=== PATIENT | female | born 1950 | race Caucasian/White ===

== ENCOUNTER 2017-03-16 15:20 | Inpatient (IN) | payer MEDICARE, OTHER ==
[2017-03-16] MEDS ORDERED: 0.9 % SODIUM CHLORIDE 1,000 ML IV ONE (15:32)
[2017-03-16] MEDS ORDERED: IPRATROPIUM/ALBUTEROL SULFATE 3 ML AMPUL.NEB NEB STA (15:32)
--- NOTE | 2017-03-16 15:35 | ED Physician Documentation ---
Upper Respiratory Symptoms - HISTORIAN Historian: patient - HPI Chief Complaint: Cough/ Upper Respiratory Further Comments: yes (67 year old female patient presents with complaints of productive, weakness, poor po intake, and fatigue.) - ROS CONST/EYES: weakness. denies: eye redness, eye itching CVS/RESP: none, shortness of breath. denies: chest pain, palpitations LYMPH: denies: leg swelling, rash, swollen glands, ankle swelling GI/: nausea. denies: abdominal pain, problems urinating, vomiting, diarrhea NEURO/PSYCH: denies: fainting, dizziness, confusion, anxiety, depression, other MS/SKIN: denies: joint pain, muscle aches, rash, other - PAST HX Lung Disease: COPD, other (RA, right ear infection, GERD, hypothyroidism) Surgeries/Procedures: appendectomy, hysterectomy, other (left lobectomy) Allergies/Adverse Reactions: Allergies Allergy/AdvReac Type Severity Reaction Status Date / Time Sulfa (Sulfonamide Allergy Unknown Verified 03/16/17 15:55 Antibiotics) Home Medications: Ambulatory Orders Medication Instructions Recorded Albuterol Sulfate [Proair Hfa] 2 inhalation IH Q 4-6 HRS PRN #1 04/07/13 each Beclomethasone Dipropionate [Qvar] 8.7 gm IH BID #1 ih 04/07/13 Cholecalciferol (Vitamin D3) 2,000 unit PO DAILY u2 04/07/13 [Vitamin D3] Fluticasone Propionate [Flonase] 16 gm NS DAILY 04/07/13 Folic Acid 1 mg PO DAILY u2 04/07/13 Methotrexate Sodium [Methotrexate] 2.5 mg PO 5 tabs q week u2 04/07/13 Hydroxychloroquine Sulfate 200 mg PO DAILY 03/16/17 Levothyroxine Sodium [Synthroid] 50 mcg PO DAILY 03/16/17 Omeprazole [Omeprazole] 20 mg PO DAILY 03/16/17 - SOCIAL HX Smoking History: non-smoker - FAMILY HX Family History: denies: none - VITAL SIGNS Vital Signs: Vital Signs Temp Pulse Resp BP Pulse Ox 98.4 F 105 H 26 H 127/54 95 03/16/17 15:48 03/16/17 17:30 03/16/17 15:48 03/16/17 15:48 03/16/17 17:30 - REVIEWED ASSESSMENTS Nursing Assessment Reviewed: Yes Vitals Reviewed: Yes Progress - Progress Progress: Reviewed lab and xray results with patient. RA sat 89%, on 2L 95-96%, large amount of yellow-green sputum, NA 129. Recommend admission for treatment of pneumonia. Patient completed doxycycline at beginning of February for ear infection, followed by levaquin po and ciprodex otic drops - completed last week. Discussed transfer vs admission. Patient initially chose transfer to [facility]. Now requesting admission to [facility]. Call to Dr De Guzman, patient accepted for admission. Reviewed history. Recommended treatment with Vancomycin IV. ED Results Lab/Radiology - Lab Results Lab Results: Lab Results 03/16/17 03/16/17 03/16/17 16:10 16:10 15:58 WBC 10.30 K/ul K/ul (4.00-12.00) RBC 3.52 M/ul L M/ul (3.90-5.20) Hgb 11.5 g/dL L g/dL (12.0-16.0) Hct 33.2 % L % (34.5-46.5) MCV 94.2 fl fl (80.0-100.0) MCH 32.6 pg pg (28.0-34.0) MCHC 34.6 g/dL g/dL (30.0-36.0) RDW 13.2 % % (11.3-14.3) Plt Count 267 K/mm3 K/mm3 (130-400) Seg Neutrophils % 70 % % (39-79) Band Neutrophils % 16 % H % (0-12) Lymphocytes % 4 % L % (16-50) Monocytes % 5 % % (0-11) Basophils % 1 % % (0-2) Metamyelocytes % 1 % H % (0-0) Reactive Lymphocytes 3 % % (0-5) Plt Morphology Comment Normal (NORMAL) RBC Morph Comment Normal (NORMAL) Sodium 129 mmol/L L mmol/L (136-145) Potassium 3.6 mmol/L mmol/L (3.5-5.1) Chloride 93 mmol/L L mmol/L (98-107) Carbon Dioxide 27 mmol/L mmol/L (22-30) BUN 12 mg/dL mg/dL (7-17) Creatinine 1.00 mg/dL mg/dL (0.52-1.04) Estimated Creat Clear 77 Est GFR ( Amer) > 60 (60 - ) Est GFR (Non-Af Amer) > 60 (60 - ) Glucose 112 mg/dL H mg/dL (74-106) Calcium 9.2 mg/dL mg/dL (8.4-10.2) Total Bilirubin 0.8 mg/dL mg/dL (0.2-1.3) AST 18 U/L U/L (15-46) ALT 22 U/L U/L (13-69) Alkaline Phosphatase 89 U/L U/L (38-126) Total Protein 7.8 g/dL g/dL (6.3-8.2) Albumin 4.0 g/dL g/dL (3.5-5.0) Influenza A (Rapid) Negative (NEGATIVE) Influenza B (Rapid) Negative (NEGATIVE) - Radiology Radiology Impressions: Examination: Portable chest History: Productive cough. Comparison exam: None provided. Findings: Single view of the chest demonstrates a normal cardiac and mediastinal silhouette. Diffuse bilateral parenchymal haziness, left greater than right. Blunting of the costophrenic origins. Osseous structures demonstrate degenerative changes. Impression: Left greater right infiltrate/effusions. Electronically signed on Mar 16, 2017 4:22:47 PM DRILL PUNCH OPERATOR by: Brad Morales - Orders Orders: ED Orders Category Date Time Status Continuous EKG monitoring Q30M Care 03/16/17 15:32 Active Continuous Pulse Oximetry Q30M Care 03/16/17 15:[address] IV Lock 1T Care 03/16/17 15:32 Active CHEST 1 VIEW [RAD] Stat Exams 03/16/17 15:32 Completed BLOOD CULTURE Stat Lab 03/16/17 17:25 Received CBC/PLATELET/DIFF Stat Lab 03/16/17 16:10 Completed CMP Stat Lab 03/16/17 16:10 Completed INFLUENZA A&B Stat Lab 03/16/17 15:58 Completed SPUTUM CULTURE Stat Lab 03/16/17 16:10 Received UA W/MICRO IF INDICATED Stat Lab 03/16/17 15:32 Ordered 0.9 % Sodium Chloride [Normal Saline] 1,000 ml Med 03/16/17 15:32 Discontinued IV NOW Ipratropium/Albuterol Sulfate [Duoneb] Med 03/16/17 15:32 Discontinued 3 ml NEB STAT STA Vancomycin HCl [Vancocin] 1 gm Med 03/16/17 17:00 Active 0.9 % Sodium Chloride [Normal Saline] 500 ml IV NOW Oxygen Daily Oxygen 03/16/17 16:00 Ordered Upper Respiratory Symptoms - EXAM General Appearance: moderate distress (ill appearing) EENT: eyes nml inspection, lids & conjunct. nml, ear nml (left), TM dullness (R) Respiratory: breath sounds nml, no pain on inspiration, speaks full sentences, rales (right lower lobe), no pleuritic chest pain, other (productive cough - yellow green sputum) Abdomen: non-tender, no organomegaly, nml bowel sounds, no distention CVS: reg rate & rhythm, heart sounds normal, equal pulses, no murmur, no gallop , PMI nml, no JVD, no friction rub, 24 Skin: color nml, no rash, warm,dry Extremities: non-tender, normal range of motion, no evidence of injury, no edema , J, [employer] Neuro/Psych: oriented x3, neuro intact, mood/affect nml, CN's nml as tested Discharge Clincal Impression: Right lower lobe pneumonia Qualifiers: Pneumonia type: due to unspecified organism Qualified Code(s): J18.1 - Lobar pneumonia, unspecified organism Referrals: Lorene Sauceda MD [Primary Care Provider] - 2 Days Condition: Stable Disposition: ADMITTED INPATIENT Decision to Admit: NO Decision Time: 17:00
[2017-03-16 16:20] LABS: MEAN CORPUSCULAR HEMOGLOBIN 32.6 pg (28.0-34.0); MEAN CORPUSCULAR VOLUME 94.2 fl (80.0-100.0)
[2017-03-16 16:33] LABS: eGFR (African) > 60; eGFR (Non-African) > 60
--- NOTE | 2017-03-16 16:36 | Diagnostic Imaging Report ---
SARA PERERA (RODRÍGUEZ) - ER~ [facility] [address] [address] ~ ~ ~ ~ Report Submission Date: Mar 16, 2017 4:22:47 PM [employer]IABILITY TECHNICIANS Patient ~ Study Name: DENI CORDOVA ~ Date: Mar 16, 2017 4:09:12 PM [employer] TECH[employer] ~ Modality Type: CR Gender: F ~ Description: CHEST : 52 ~ Institution: [facility] Physician: SARA PERERA) - ER ~ ~ ~ Examination: Portable chest History: Productive cough. Comparison exam: None provided. Findings: Single view of the chest demonstrates a normal cardiac and mediastinal silhouette. Diffuse bilateral parenchymal haziness, left greater than right. Blunting of the costophrenic origins. Osseous structures demonstrate degenerative changes. Impression: Left greater right infiltrate/effusions. ~ Electronically signed on Mar 16, 2017 4:22:47 PM [employer]CH[employer] by: Brad ESPINOZA
[2017-03-16 16:46] LABS: BASOPHILS % 1 % (0-2); MONOCYTES % 5 % (0-11); SEGMENTED NEUTROPHILS % 70 % (39-79)
[2017-03-16] MEDS ORDERED: VANCOMYCIN HCL 1 GM in 0.9 % SODIUM CHLORIDE 500 ML IV ONE (17:00)
[2017-03-16] MEDS ORDERED: VANCOMYCIN PHARMACY TO DOSE IV SCH (18:00)
[2017-03-16] MEDS ORDERED: SALINE FLUSH 10 ML DISP.SYRIN IVF ONE ×2 (19:05→20:42)
[2017-03-16] MEDS: IPRATROPIUM/ALBUTEROL SULFATE 3 ML AMPUL.NEB NEB SCH (19:50)
[2017-03-16] MEDS ORDERED: AZITHROMYCIN 500 MG VIAL IV ONE (19:51)
[2017-03-16] MEDS ORDERED: 0.9 % SODIUM CHLORIDE 250 ML IV ONE (19:51)
[2017-03-16 20:00] VITALS: BMI 29.4
[2017-03-16] MEDS: SODIUM CHLORIDE 0.45 % 1,000 ML IV SCH (20:10)
[2017-03-16] MEDS: AZITHROMYCIN 500 MG in 0.9 % SODIUM CHLORIDE 250 ML IV SCH (20:15)
[2017-03-16] MEDS: ACETAMINOPHEN 325 MG TABLET PO PRN (20:18)
--- NOTE | 2017-03-16 21:32 | History and Physical Report ---
History of Present Illnes - History of Present Illness Reason for Visit: dyspnea History of Present Illness: 67-year-old white female who states that she had developed a cough is been productive of some yellow phlegm for the last two days. Patient denies any hemoptysis associated with it. Patient is had a low-grade fever up to 99 to 100 associated with some chills. Patient started having some mild wheezing. 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 Patient subsequently came to the emergency room for evaluation. Patient was found to be hypoxic with a room air saturation of 85%. Patient with given several high flow nebulization treatment but continue to require supplemental oxygen in order to keep her SAO2 greater than 90%. Chest x- ray did show a right lower lobe pneumonia. Patient was subsequently admitted to the hospital for further evaluation and treatment. Patient does have a history of chronic bronchiectasis. 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 - Past Medical History Pulmonary: Other (chronic bronchiectasis) Musculoskeletal: Osteoarthritis, Other (RA) - Past Surgical History Past Surgical History: Hysterectomy, Other (Sinus surgery, reconstructive surgery to toe due to RA, LL L lubectomy due to chronic bronchiectasis) - Past Family History Mother Family History: (74yo advance age) Father Family History: (75yo stomach cancer ) - Past Social History Smoke: No (Exsposed to second hand smoke) Alcohol: Occassional Drugs: None Lives: With Family (daughter) Domestic Violence: Negative - Health Maintenance Health Maintenance: Influenza Vaccine (2017), Pneumococcal Vaccine (2016), Mammogram, Colonoscopy Influenza Vaccine: Current for this Influenza Season Pneumonia Vaccine: Yes (2016) Resuscitation Status: Resusciation Status Resuscitation Status Full Code - Unable to Obtain History Unable to Obtain: No Review of Systems - Review of Systems Constitutional: Fever, Chills. negative: Sweats Eyes: negative: vision change ENT: negative: Ear Pain, Ear Discharge, Nose Pain Respiratory: Cough, Shortness of Breath, SOB with Excertion, Sputum, Wheezing. negative: Hemoptysis, Pleuritic Pain Cardiovascular: negative: Chest Pain, Palpitations, Orthopnea, Edema, Light Headedness Gastrointestinal: negative: Nausea, Vomiting, Abdominal Pain, Diarrhea, Constipation, Melena, Hematochezia Genitourinary: negative: Dysuria, Frequency, Incontinence Musculoskeletal: negative: Neck Pain, Shoulder Pain, Back Pain Skin: negative: Rash Neurological: negative: Weakness, Numbness, Incoordination, Change in Speech, Confusion - Medications/Allergies Allergies/Adverse Reactions: Allergies Allergy/AdvReac Type Severity Reaction Status Date / Time Sulfa (Sulfonamide Allergy Unknown Verified 03/16/17 15:55 Antibiotics) Home Medications: Home Medications Hydroxychloroquine Sulfate 200 mg PO DAILY 03/16/17 Levothyroxine Sodium [Synthroid] 50 mcg PO DAILY 03/16/17 Omeprazole [Omeprazole] 20 mg PO DAILY 03/16/17 Current Inpatient Medications: Current Inpatient Medications Acetaminophen (Tylenol) 650 mg PO Q6H PRN PRN Reason: PAIN OR TEMPERATURE > 101 Last Admin: 03/16/17 20:18 Dose: 650 mg Albuterol/Ipratropium (Duoneb) 3 ml NEB Q6 JANE Last Admin: 03/16/17 19:50 Dose: 3 ml Sodium Chloride (1/2ns) 1,000 mls @ 50 mls/hr IV Q10H [facility] Last Admin: 03/16/17 20:10 Dose: 50 mls/hr Vancomycin HCl 1 gm/ Sodium (Chloride) 250 mls @ 250 mls/hr IV QD [facility] Stop: 03/31/17 17:59 Azithromycin 500 mg/ Sodium (Chloride) 250 mls @ 125 mls/hr IV Q24H [facility] Stop: 03/26/17 19:59 Last Admin: 03/16/17 20:15 Dose: 125 mls/hr Miscellaneous (Vancomycin Pharmacy To Dose) 1 each IV NOW [facility] Exam - Exam Vital Signs: Vital Signs (72 hours) 03/16/17 03/16/17 18:00 18:28 Temperature 98.2 F 98.2 F Pulse Rate [ 98 H 98 H Pulse ox] Respiratory 16 16 Rate Blood Pressure 123/70 123/70 [Left Arm] O2 Sat by Pulse 98 98 Oximetry General: Alert, Oriented to Person, Oriented to Place, Oriented to Time, Cooperative, Mild distress HEENT: Atraumatic, PERRLA, EOMI, Mouth Mucous membr. moist/[place], Nose Mucous membr. moist/[place], Dentition Normal, Hearing Grossly Normal. No: Pharyngeal Erythema Neck: Normal Range of Motion. No: Stridor, Rigidity Carotids: Within normal limits Thyroid: Within normal limits. Lungs: Clear to auscultation, Normal air movement, Speaks full Sentences, Wheezes (mild exspiratory), Rales (right base), Rhonchi (bilateral) Cardiovascular: Regular rate, Normal S1, Normal S2, No murmurs Abdomen: Normal bowel sounds, Soft, No tenderness, No hepatospenomegaly, No masses. No: Distended Integumentary: Normal, [place], Warm, Dry Extremities: No clubbing, No cyanosis, No edema, Normal pulses, No tenderness/ swelling Neurological: Normal gait, Normal speech, Strength Equal Bilat, Normal tone, Sensation intact, Cranial nerves 3-12 NL, Reflexes 2+ Psych/Mental Status: Mental status NL, Mood NL, Appropriate Affect, Intact Judgment Assessment/Plan - Assessment/Plan (1) Bilateral pneumonia Status: Acute Current Visit: Yes Qualifiers: Pneumonia type: due to unspecified organism Lung location: lower lobe of lung Qualified Code(s): J18.9 - Pneumonia, unspecified organism Assessment: Patient will be started on high flow nebulization treatments with doing marjan. Patient be started on IV antibiotic therapy. Because of reasons antibiotic therapy with doxycycline and Levaquin patient be started on Vancamycin and azithromycin. Patient will be continued with supplemental oxygen. (2) Rheumatoid arthritis Status: Chronic Current Visit: Yes Qualifiers: Rheumatoid arthritis location: multiple sites Rheumatoid factor presence: with rheumatoid factor Qualified Code(s): M05.79 - Rheumatoid arthritis with rheumatoid factor of multiple sites without organ or systems involvement Assessment: Patient will be continued on home medications (3) Bronchiectasis Status: Chronic Current Visit: Yes (4) Osteoarthritis (arthritis due to wear and tear of joints) Status: Chronic Current Visit: Yes VTE Assessment - RISK FACTOR SCORE VTE RISK FACTOR SCORES: AGE OVER 60 YEARS, ACUTE INFECTION OTHER THEN SEPSIS, ANTICIPATED BED CONFINEMENT OR IMMOBILIZATION > 24 HOURS - RISK VTE HIGH RISK: SCORE OF 3-4 (RISK PROXIMAL DVT 4-8%) PROPHYLAXIS NEEDED (needs prophalzxis)
[2017-03-16] MEDS: ENOXAPARIN SODIUM 30 MG/0.3 ML DISP.SYRIN SQ SCH (22:04)
[2017-03-17] MEDS: IPRATROPIUM/ALBUTEROL SULFATE 3 ML AMPUL.NEB NEB SCH ×4 (00:30→17:41)
[2017-03-17] MEDS: ACETAMINOPHEN 325 MG TABLET PO PRN ×3 (05:28→19:54)
[2017-03-17] MEDS: SODIUM CHLORIDE 0.45 % 1,000 ML IV SCH ×2 (06:01→19:56)
[2017-03-17 06:41] LABS: eGFR (African) > 60; eGFR (Non-African) > 60
[2017-03-17 07:15] LABS: MONOCYTES % 10 % (0-11); SEGMENTED NEUTROPHILS % 77 % (39-79)
--- NOTE | 2017-03-17 09:17 | Inpatient Progress Note ---
Subjective - Required Recertification Statement I anticipate X number of days because-include discharge plan: 2 days - Review of Systems Events since last encounter: Patient continues to have some dyspnea on exertion and a productive cough up some green phlegm. Patient denies any chest pain.Patient is noted to be hyponatremia with a sodium of 129. Pulmonary: Dyspnea, Cough Objective - Exam Vitals and I&O: Vital Signs Temp 101.2 F H 03/17/17 06:00 Pulse 103 H 03/17/17 05:34 Resp 16 03/17/17 06:00 BP 126/59 03/17/17 06:00 Pulse Ox 93 03/17/17 06:00 Intake & Output 03/16/17 03/16/17 03/17/17 11:59 23:59 11:59 Intake Total 420 Balance 420 Weight 75.296 kg Intake: Oral 420 Other: Voiding Method Toilet Toilet # Voids 2 General: Alert, Oriented to Person, Oriented to Place, Oriented to Time Neck: Supple, No JVD Lungs: Speaks full Sentences, Wheezes, Rhonchi (RLL) Cardiovascular: Regular rate, Normal S1, Normal S2, No murmurs Abdomen: Normal bowel sounds, Soft, No tenderness Extremities: No clubbing, No cyanosis, No edema Skin: Normal, Gate, Warm, Dry Psych/Mental Status: Mental status NL, Mood NL - Results Results: Laboratory Results WBC 8.40 K/ul (4.00-12.00) 03/17/17 06:10 RBC 3.13 M/ul (3.90-5.20) L 03/17/17 06:10 Hgb 10.0 g/dL (12.0-16.0) L 03/17/17 06:10 Hct 29.4 % (34.5-46.5) L 03/17/17 06:10 MCV 94.0 fl (80.0-100.0) 03/17/17 06:10 MCH 32.0 pg (28.0-34.0) 03/17/17 06:10 MCHC 34.0 g/dL (30.0-36.0) 03/17/17 06:10 RDW 13.2 % (11.3-14.3) 03/17/17 06:10 Plt Count 266 K/mm3 (130-400) 03/17/17 06:10 Seg Neutrophils % 77 % (39-79) 03/17/17 06:10 Band Neutrophils % 16 % (0-12) H 03/16/17 16:10 Lymphocytes % 13 % (16-50) L 03/17/17 06:10 Monocytes % 10 % (0-11) 03/17/17 06:10 Basophils % 1 % (0-2) 03/16/17 16:10 Metamyelocytes % 1 % (0-0) H 03/16/17 16:10 Reactive Lymphocytes 3 % (0-5) 03/16/17 16:10 Plt Morphology Comment Normal (NORMAL) 03/17/17 06:10 RBC Morph Comment Normal (NORMAL) 03/17/17 06:10 Sodium 125 mmol/L (136-145) L 03/17/17 06:10 Potassium 3.1 mmol/L (3.5-5.1) L 03/17/17 06:10 Chloride 94 mmol/L (98-107) L 03/17/17 06:10 Carbon Dioxide 24 mmol/L (22-30) 03/17/17 06:10 BUN 9 mg/dL (7-17) 03/17/17 06:10 Creatinine 0.70 mg/dL (0.52-1.04) 03/17/17 06:10 Estimated Creat Clear 110 03/17/17 06:10 Est GFR ( Amer) > 60 (60-) 03/17/17 06:10 Est GFR (Non-Af Amer) > 60 (60-) 03/17/17 06:10 Glucose 122 mg/dL (74-106) H 03/17/17 06:10 Calcium 8.2 mg/dL (8.4-10.2) L 03/17/17 06:10 Total Bilirubin 0.8 mg/dL (0.2-1.3) 03/16/17 16:10 AST 18 U/L (15-46) 03/16/17 16:10 ALT 22 U/L (13-69) 03/16/17 16:10 Alkaline Phosphatase 89 U/L (38-126) 03/16/17 16:10 Total Protein 7.8 g/dL (6.3-8.2) 03/16/17 16:10 Albumin 4.0 g/dL (3.5-5.0) 03/16/17 16:10 Influenza A (Rapid) Negative (NEGATIVE) 03/16/17 15:58 Influenza B (Rapid) Negative (NEGATIVE) 03/16/17 15:58 Assessment/Plan - Assessment/Plan (1) Bilateral pneumonia Status: Acute Qualifiers: Pneumonia type: due to unspecified organism Lung location: lower lobe of lung Qualified Code(s): J18.9 - Pneumonia, unspecified organism Assessment: Will continue with vancomycin at this time. Victimizing trough levels will be followed. (2) Rheumatoid arthritis Status: Chronic Qualifiers: Rheumatoid arthritis location: multiple sites Rheumatoid factor presence: with rheumatoid factor Qualified Code(s): M05.79 - Rheumatoid arthritis with rheumatoid factor of multiple sites without organ or systems involvement (3) Bronchiectasis Status: Chronic (4) Osteoarthritis (arthritis due to wear and tear of joints) Status: Chronic (5) Hyponatremia Status: Acute Assessment: Patient will be started on fluid restrictions and will follow patient sodium level.
[2017-03-17] MEDS ORDERED: PANTOPRAZOLE SODIUM 40 MG TABLET PO ONE (09:52)
[2017-03-17] MEDS ORDERED: VANCOMYCIN HCL 1 GM VIAL IV ONE (17:30)
[2017-03-17] MEDS ORDERED: 0.9 % SODIUM CHLORIDE 250 ML IV ONE ×2 (17:34→20:07)
[2017-03-17] MEDS: VANCOMYCIN HCL 1 GM in 0.9 % SODIUM CHLORIDE 250 ML IV SCH (17:45)
[2017-03-17] MEDS: ENOXAPARIN SODIUM 30 MG/0.3 ML DISP.SYRIN SQ SCH (19:54)
[2017-03-17] MEDS: AZITHROMYCIN 500 MG in 0.9 % SODIUM CHLORIDE 250 ML IV SCH (19:56)
[2017-03-17] MEDS ORDERED: AZITHROMYCIN 500 MG VIAL IV ONE (19:58)
[2017-03-17] MEDS ORDERED: SALINE FLUSH 10 ML DISP.SYRIN IVF ONE (20:58)
[2017-03-18] MEDS: IPRATROPIUM/ALBUTEROL SULFATE 3 ML AMPUL.NEB NEB SCH ×4 (00:49→17:29)
[2017-03-18] MEDS: PANTOPRAZOLE SODIUM 40 MG TABLET PO SCH (05:58)
[2017-03-18 08:05] LABS: eGFR (African) > 60; eGFR (Non-African) > 60
[2017-03-18] MEDS ORDERED: SALINE FLUSH 10 ML DISP.SYRIN IVF ONE (10:33)
--- NOTE | 2017-03-18 11:01 | Inpatient Progress Note ---
Subjective - Required Recertification Statement I anticipate X number of days because-include discharge plan: 1 - Review of Systems Events since last encounter: Patient states that she is feeling some better, cough is better but still productive of some yellow phlegm. Wheezing has improved. General: Chills HEENT: Denies: Head Aches Pulmonary: Dyspnea, Cough Cardiovascular: Denies: Chest Pain Objective - Exam Vitals and I&O: Vital Signs Temp 99.5 F 03/18/17 10:00 Pulse 87 03/18/17 10:00 Resp 18 03/18/17 10:00 BP 104/46 03/18/17 10:00 Pulse Ox 94 03/18/17 10:00 Intake & Output 03/17/17 03/17/17 03/18/17 11:59 23:59 11:59 Intake Total 660 2040 500 Balance 660 2040 500 Intake: IV 1200 400 Left Forearm 1200 400 Oral 660 840 100 Other: Voiding Method Toilet Toilet # Voids 2 2 General: Alert, Oriented to Person, Oriented to Place, Oriented to Time Neck: Supple, No JVD Lungs: Normal air movement, Wheezes (mild expiratory). No: Rales, Rhonchi Cardiovascular: Regular rate, Normal S1, Normal S2 Abdomen: Normal bowel sounds, Soft, No tenderness - Results Results: Laboratory Results WBC 8.40 K/ul (4.00-12.00) 03/17/17 06:10 RBC 3.13 M/ul (3.90-5.20) L 03/17/17 06:10 Hgb 10.0 g/dL (12.0-16.0) L 03/17/17 06:10 Hct 29.4 % (34.5-46.5) L 03/17/17 06:10 MCV 94.0 fl (80.0-100.0) 03/17/17 06:10 MCH 32.0 pg (28.0-34.0) 03/17/17 06:10 MCHC 34.0 g/dL (30.0-36.0) 03/17/17 06:10 RDW 13.2 % (11.3-14.3) 03/17/17 06:10 Plt Count 266 K/mm3 (130-400) 03/17/17 06:10 Seg Neutrophils % 77 % (39-79) 01/01/18 06:10 Band Neutrophils % 16 % (0-12) H 03/16/17 16:10 Lymphocytes % 13 % (16-50) L 03/17/17 06:10 Monocytes % 10 % (0-11) 03/17/17 06:10 Basophils % 1 % (0-2) 03/16/17 16:10 Metamyelocytes % 1 % (0-0) H 03/16/17 16:10 Reactive Lymphocytes 3 % (0-5) 03/16/17 16:10 Plt Morphology Comment Normal (NORMAL) 03/17/17 06:10 RBC Morph Comment Normal (NORMAL) 03/17/17 06:10 Sodium 129 mmol/L (136-145) L 03/18/17 05:50 Potassium 2.8 mmol/L (3.5-5.1) L 03/18/17 05:50 Chloride 96 mmol/L (98-107) L 03/18/17 05:50 Carbon Dioxide 25 mmol/L (22-30) 03/18/17 05:50 BUN 4 mg/dL (7-17) L 03/18/17 05:50 Creatinine 0.70 mg/dL (0.52-1.04) 03/18/17 05:50 Estimated Creat Clear 110 03/18/17 05:50 Est GFR ( Amer) > 60 (60-) 03/18/17 05:50 Est GFR (Non-Af Amer) > 60 (60-) 03/18/17 05:50 Glucose 103 mg/dL (74-106) 03/18/17 05:50 Calcium 8.2 mg/dL (8.4-10.2) L 03/18/17 05:50 Total Bilirubin 0.8 mg/dL (0.2-1.3) 03/16/17 16:10 AST 18 U/L (15-46) 03/16/17 16:10 ALT 22 U/L (13-69) 03/16/17 16:10 Alkaline Phosphatase 89 U/L (38-126) 03/16/17 16:10 Total Protein 7.8 g/dL (6.3-8.2) 03/16/17 16:10 Albumin 4.0 g/dL (3.5-5.0) 12/31/17 16:10 Influenza A (Rapid) Negative (NEGATIVE) 03/16/17 15:58 Influenza B (Rapid) Negative (NEGATIVE) 03/16/17 15:58 Assessment/Plan - Assessment/Plan (1) Bilateral pneumonia Status: Acute Qualifiers: Pneumonia type: due to unspecified organism Lung location: lower lobe of lung Qualified Code(s): J18.9 - Pneumonia, unspecified organism Narrative Support Text: recheck chest x-ray, continue with present care. Sputum and blood cultures pending. (2) Rheumatoid arthritis Status: Chronic Qualifiers: Rheumatoid arthritis location: multiple sites Rheumatoid factor presence: with rheumatoid factor Qualified Code(s): M05.79 - Rheumatoid arthritis with rheumatoid factor of multiple sites without organ or systems involvement Assessment: stable (3) Bronchiectasis Status: Chronic Assessment: stable (4) Osteoarthritis (arthritis due to wear and tear of joints) Status: Chronic Assessment: stable (5) Hyponatremia Status: Acute Assessment: Improved (6) Hypokalemia Status: Acute Assessment: Patient will be started on supplemental potassium therapy.
[2017-03-18] MEDS: POTASSIUM CHLORIDE 20 MEQ TABLET.ER PO SCH ×2 (12:39→21:28)
[2017-03-18] MEDS: ACETAMINOPHEN 325 MG TABLET PO PRN ×2 (12:43→18:09)
--- NOTE | 2017-03-18 12:46 | Diagnostic Imaging Report ---
[facility]MED SURG [facility] [address] [facility] [address] [address] Report Submission Date: Mar 18, 2017 12:43:10 PM TRAVELING NURSE Patient Study Name: DENI CORDOVA Date: Mar 18, 2017 12:22:44 PM TRAVELING NURSE Modality Type: CR Gender: F Description: CHEST : 52 Institution: [facility] Physician: [facility]/MED SURG Examination: Portable chest History: Productive cough. Comparison exam: 16 March 2017 Findings: Single view of the chest demonstrates a normal cardiac and mediastinal silhouette. Surgical clips projecting over the cardiac silhouette. Diffuse bilateral parenchymal haziness, left greater than right. Blunting of the costophrenic origins - increased at the left base. Osseous structures demonstrate degenerative changes. Impression: Continued, left greater right, infiltrate/effusions - slight increase in left lower lung effusion. Electronically signed on Mar 18, 2017 12:43:10 PM TRAVELING NURSE by: Brad ESPINOZA
[2017-03-18] MEDS: SODIUM CHLORIDE 0.45 % 1,000 ML IV SCH ×3 (13:43→21:20)
[2017-03-18] MEDS: VANCOMYCIN HCL 1 GM in 0.9 % SODIUM CHLORIDE 250 ML IV SCH (18:10)
[2017-03-18] MEDS: AZITHROMYCIN 500 MG in 0.9 % SODIUM CHLORIDE 250 ML IV SCH (21:30)
[2017-03-18] MEDS: ENOXAPARIN SODIUM 30 MG/0.3 ML DISP.SYRIN SQ SCH (21:35)
[2017-03-19] MEDS: IPRATROPIUM/ALBUTEROL SULFATE 3 ML AMPUL.NEB NEB SCH ×4 (00:16→17:10)
[2017-03-19] MEDS: ACETAMINOPHEN 325 MG TABLET PO PRN ×2 (01:13→17:09)
[2017-03-19] MEDS ORDERED: SALINE FLUSH 10 ML DISP.SYRIN IVF ONE ×3 (06:01→22:34)
[2017-03-19] MEDS: PANTOPRAZOLE SODIUM 40 MG TABLET PO SCH (06:38)
[2017-03-19] MEDS: SODIUM CHLORIDE 0.45 % 1,000 ML IV SCH ×2 (06:38→20:40)
[2017-03-19 07:04] LABS: eGFR (African) > 60; eGFR (Non-African) > 60
[2017-03-19] MEDS: POTASSIUM CHLORIDE 20 MEQ TABLET.ER PO SCH ×2 (09:26→19:59)
--- NOTE | 2017-03-19 11:13 | Inpatient Progress Note ---
Subjective - Required Recertification Statement I anticipate X number of days because-include discharge plan: 1 day - Review of Systems Events since last encounter: Patient seems to be improving. Patient breathing has improved. Sputum culture is growing staph aureus. The sensitivities have been reviewed. Patient hyponatremia and hypokalemia appeared to be improved at this time. Patient is still required supplemental oxygen therapy in order to maintain her SaO2 greater than 90%. Patient denies any chest pain or chest pressure. Cough is getting less productive. Objective - Exam Vitals and I&O: Vital Signs Temp 100.3 F H 03/19/17 10:00 Pulse 94 H 03/19/17 10:00 Resp 24 03/19/17 10:00 BP 102/49 03/19/17 10:00 Pulse Ox 95 03/19/17 10:00 Intake & Output 03/18/17 03/18/17 03/19/17 11:59 23:59 11:59 Intake Total 640 1310 3130 Balance 640 1310 3130 Weight 75.296 kg Intake: IV 103 862 5838 Left Forearm 400 Right Wrist 350 3130 Oral 240 960 Other: Voiding Method Toilet Toilet # Voids 1 General: Alert, Oriented to Person, Oriented to Place, Oriented to Time Neck: Supple, No JVD Lungs: Normal air movement, Speaks full Sentences, Wheezes (mild right side), Rales (few in the right base) Cardiovascular: Regular rate, Normal S1, Normal S2, No murmurs Abdomen: Normal bowel sounds, Soft Extremities: No edema Skin: Normal, [place], Warm, Dry Psych/Mental Status: Mental status NL, Appropriate Affect - Results Results: Laboratory Results WBC 8.40 K/ul (4.00-12.00) 03/17/17 06:10 RBC 3.13 M/ul (3.90-5.20) L 03/17/17 06:10 Hgb 10.0 g/dL (12.0-16.0) L 03/17/17 06:10 Hct 29.4 % (34.5-46.5) L 03/17/17 06:10 MCV 94.0 fl (80.0-100.0) 03/17/17 06:10 MCH 32.0 pg (28.0-34.0) 03/17/17 06:10 MCHC 34.0 g/dL (30.0-36.0) 03/17/17 06:10 RDW 13.2 % (11.3-14.3) 03/17/17 06:10 Plt Count 266 K/mm3 (130-400) 03/17/17 06:10 Seg Neutrophils % 77 % (39-79) 03/17/17 06:10 Band Neutrophils % 16 % (0-12) H 03/16/17 16:10 Lymphocytes % 13 % (16-50) L 03/17/17 06:10 Monocytes % 10 % (0-11) 03/17/17 06:10 Basophils % 1 % (0-2) 03/16/17 16:10 Metamyelocytes % 1 % (0-0) H 03/16/17 16:10 Reactive Lymphocytes 3 % (0-5) 03/16/17 16:10 Plt Morphology Comment Normal (NORMAL) 03/17/17 06:10 RBC Morph Comment Normal (NORMAL) 03/17/17 06:10 Sodium 134 mmol/L (136-145) L 03/19/17 06:20 Potassium 2.9 mmol/L (3.5-5.1) L 03/19/17 06:20 Chloride 99 mmol/L (98-107) 03/19/17 06:20 Carbon Dioxide 28 mmol/L (22-30) 03/19/17 06:20 BUN 4 mg/dL (7-17) L 03/19/17 06:20 Creatinine 0.70 mg/dL (0.52-1.04) 03/19/17 06:20 Estimated Creat Clear 110 03/19/17 06:20 Est GFR ( Amer) > 60 (60-) 03/19/17 06:20 Est GFR (Non-Af Amer) > 60 (60-) 03/19/17 06:20 Glucose 98 mg/dL (74-106) 03/19/17 06:20 Estimat Average Glucose 108 mg/dL 03/18/17 05:50 Hemoglobin A1c 5.4 % (4.0-5.6) 03/18/17 05:50 Calcium 8.4 mg/dL (8.4-10.2) 03/19/17 06:20 Total Bilirubin 0.4 mg/dL (0.2-1.3) 03/19/17 06:20 AST 14 U/L (15-46) L 03/19/17 06:20 ALT 24 U/L (13-69) 03/19/17 06:20 Alkaline Phosphatase 102 U/L (38-126) 03/19/17 06:20 Total Protein 6.2 g/dL (6.3-8.2) L 03/19/17 06:20 Albumin 2.9 g/dL (3.5-5.0) L 03/19/17 06:20 Influenza A (Rapid) Negative (NEGATIVE) 03/16/17 15:58 Influenza B (Rapid) Negative (NEGATIVE) 03/16/17 15:58 Assessment/Plan - Assessment/Plan (1) Bilateral pneumonia Status: Acute Qualifiers: Pneumonia type: due to unspecified organism Lung location: lower lobe of lung Qualified Code(s): J18.9 - Pneumonia, unspecified organism Assessment: Patient will be switched to Augmentin and and the bike Mizer will be discontinued.Continue with supportive oxygen therapy and nebulized treatments. (2) Rheumatoid arthritis Status: Chronic Qualifiers: Rheumatoid arthritis location: multiple sites Rheumatoid factor presence: with rheumatoid factor Qualified Code(s): M05.79 - Rheumatoid arthritis with rheumatoid factor of multiple sites without organ or systems involvement Assessment: Stable (3) Bronchiectasis Status: Chronic (4) Osteoarthritis (arthritis due to wear and tear of joints) Status: Chronic Assessment: Stable at this time (5) Hyponatremia Status: Acute Assessment: Improved,Na 134
[2017-03-19] MEDS ORDERED: VANCOMYCIN HCL 1.25 GM in 0.9 % SODIUM CHLORIDE 250 ML IV ONE (12:00)
[2017-03-19] MEDS: AMOXICILLIN/POT 875/125 1 EACH PO SCH ×3 (12:38→17:51)
[2017-03-19] MEDS ORDERED: 0.9 % SODIUM CHLORIDE 1,000 ML IV ONE (16:22)
[2017-03-19] MEDS: ENOXAPARIN SODIUM 30 MG/0.3 ML DISP.SYRIN SQ SCH (20:00)
[2017-03-19] MEDS: VANCOMYCIN HCL 1.25 GM in 0.9 % SODIUM CHLORIDE 250 ML IV SCH (20:00)
[2017-03-19] MEDS ORDERED: SODIUM CHLORIDE 0.45 % 1,000 ML IV ONE (20:01)
[2017-03-19] MEDS ORDERED: POTASSIUM CHLORIDE 20 MEQ TABLET.ER PO ONE (20:20)
[2017-03-20] MEDS: IPRATROPIUM/ALBUTEROL SULFATE 3 ML AMPUL.NEB NEB SCH ×4 (06:01→17:45)
[2017-03-20 06:54] LABS: eGFR (African) > 60; eGFR (Non-African) > 60
[2017-03-20] MEDS ORDERED: LEVOTHYROXINE SODIUM 50 MCG TABLET PO SCH (07:00)
[2017-03-20] MEDS ORDERED: OMEPRAZOLE 20 MG CAPSULE.DR PO SCH (07:00)
[2017-03-20] MEDS: AMOXICILLIN/POT 875/125 1 EACH PO SCH ×2 (08:32→17:42)
[2017-03-20] MEDS: POTASSIUM CHLORIDE 20 MEQ TABLET.ER PO SCH (08:32)
[2017-03-20] MEDS: SODIUM CHLORIDE 0.45 % 1,000 ML IV SCH (14:00)
[2017-03-20] MEDS: VANCOMYCIN HCL 1.25 GM in 0.9 % SODIUM CHLORIDE 250 ML IV SCH (14:01)
[2017-03-20 18:44] VITALS: BP 120/68
--- NOTE | 2017-03-21 10:57 | Discharge Summary ---
Discharge Summary - Discharge Sumary History of Present Illness: 67-year-old white female who states that she had developed a cough is been productive of some yellow phlegm for the last two days. Patient denies any hemoptysis associated with it. Patient is had a low-grade fever up to 99 to 100 associated with some chills. Patient started having some mild wheezing. 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 Patient subsequently came to the emergency room for evaluation. Patient was found to be hypoxic with a room air saturation of 85%. Patient with given several high flow nebulization treatment but continue to require supplemental oxygen in order to keep her SAO2 greater than 90%. Chest x- ray did show a right lower lobe pneumonia. Patient was subsequently admitted to the hospital for further evaluation and treatment. Patient does have a history of chronic bronchiectasis. 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 Condition at Discharge: Stable Home Medications: Ambulatory Orders Medication Instructions Recorded Albuterol Sulfate [Proair Hfa] 2 inhalation IH Q 4-6 HRS PRN #1 04/07/13 each Beclomethasone Dipropionate [Qvar] 8.7 gm IH BID #1 ih 04/07/13 Cholecalciferol (Vitamin D3) 2,000 unit PO DAILY u2 04/07/13 [Vitamin D3] Fluticasone Propionate [Flonase] 16 gm NS DAILY 04/07/13 Folic Acid 1 mg PO DAILY u2 04/07/13 Methotrexate Sodium [Methotrexate] 2.5 mg PO 5 tabs q week u2 04/07/13 Hydroxychloroquine Sulfate 200 mg PO DAILY 03/16/17 Levothyroxine Sodium [Synthroid] 50 mcg PO DAILY 03/16/17 Omeprazole 20 mg PO DAILY 03/16/17 Amoxicillin/Potassium Clav 1 each PO BID #14 tablet 03/20/17 [Augmentin 875-125 Tablet] Ipratropium/Albuterol Sulfate 3 ml NEB Q6 ampul.neb 03/20/17 [Duoneb] Ipratropium/Albuterol Sulfate 3 ml IH Q4 PRN #60 ampul.neb 03/21/17 [Duoneb] Consultations this Visit: None Procedures this Visit: None Allergies/Adverse Reactions: Allergies Allergy/AdvReac Type Severity Reaction Status Date / Time Sulfa (Sulfonamide Allergy Unknown Verified 03/16/17 15:55 Antibiotics) Discharge Summary: Patient was started on Iv antibiotic therapy of Vancomycin and azithromycim. Patient was started on hypo nebular patient treatment of lbuterol/ipratropium Sputum culture was done and came back staph a. Patient was then switched wo Augemntin 875mg BID. Patient symptoms of SOB and cough began to improve. Patient was ambulating better with less SOB. At the time of discharge patient bill did require oxygen supplement at 2 L per nasal cannula. Patient oxygen levels did drop down to 86% with ambulation. However patient did seem weak and was having some difficulties with ambulation realted to her weakness. OT and PT were consulted and it was felt that she would benifit from some further therapy. Arrangements were made for her to be admitted to SNF but she decided to go home with home health. Patient did have some hyponatremia and was placed on fluid restrictions for a short period of time until her Na level improved. At the time of discharge it was 132. Patient did have some hyperglycemia also during her hospital stay with fasting BS in the low to mid 100 range. A1c was done and was 5.4. Patient was also hypokalemic and started on supplemental K therapy. Last K prior to discharge was 3.6. Patient was subsequently discharged from in stable condition. - Final Diagnosis (1) Bilateral pneumonia Problems: Improved, sputum culutre growing staph aureus (2) Bronchiectasis Problems: stable (3) Rheumatoid arthritis Problems: stable (4) Osteoarthritis (arthritis due to wear and tear of joints) Problems: stable (5) Hyponatremia Problems: improved (6) Hypokalemia Problems: Improved on supplemental potassium therapy.
== END 2017-03-20 19:31 | disposition home health service (06) | DRG 194 ==
LOC: ED 15:20 → SOUTH 17:45
PROVIDERS: ADMIT Family Medicine; ATTEND Family Medicine
DX: J18.9 Pneumonia, unspecified organism (principal); J47.1 Bronchiectasis with (acute) exacerbation; M06.9 Rheumatoid arthritis, unspecified; M19.90 Unspecified osteoarthritis, unspecified site; E87.1 Hypo-osmolality and hyponatremia; E87.6 Hypokalemia
CPT/HCPCS: 36415; 71010; 71020; 80048; 80053; 80202; 83036; 85025; 87040; 87070; 87186; 87400; 94640; 94760; 96365; 96366; 99222; 99232; 99238; 99283; 99284; J0456; J1650; J3370; J7050; J7060; A9270; J7030; S1016

== ENCOUNTER 2019-02-14 18:33 | Emergency (ER) | payer MEDICARE, OTHER ==
[2019-02-14] MEDS: DIPH,PERTUSS(ACELL),TET VAC/PF 0.5 ML DISP.SYRIN IM ONE (19:08)
--- NOTE | 2019-02-14 19:09 | ED Physician Documentation ---
General Adult - HISTORIAN Historian: patient - HPI Chief Complaint: Laceration/Recheck/Suture (Scalp Lac) Additional Information: 69 year old female presents with family s/p fall from ladder (2 steps) and hit her head on table; patient has a 3 cm lac to the left side of scalp. Denies any LOC, no blood thinners, and remembers fall. She denies any other injuries. Onset: minutes Timing: still present Severity: mild Modifying Factors: Fall from step ladder (2 steps) - ROS CONST: no problems EYES/ENT: none CVS/RESP: none GI/: none MS/SKIN/LYMPH: none NEURO/PSYCH: headache. denies: dizziness, numbness, difficulty walking - PAST HX Past History: other (RA, hypothyroid) Immunizations: UTD. denies: tetanus (will update today) Allergies/Adverse Reactions: Allergies Allergy/AdvReac Type Severity Reaction Status Date / Time Sulfa (Sulfonamide Allergy Unknown Verified 03/16/17 15:55 Antibiotics) Home Medications: Ambulatory Orders Medication Instructions Recorded Albuterol Sulfate [Proair Hfa] 2 inhalation IH Q 4-6 HRS PRN #1 04/07/13 each Beclomethasone Dipropionate [Qvar] 8.7 gm IH BID #1 ih 04/07/13 Cholecalciferol (Vitamin D3) 2,000 unit PO DAILY u2 04/07/13 [Vitamin D3] Fluticasone Propionate [Flonase] 16 gm NS DAILY 04/07/13 Folic Acid 1 mg PO DAILY u2 04/07/13 Methotrexate Sodium [Methotrexate] 2.5 mg PO 5 tabs q week u2 04/07/13 Hydroxychloroquine Sulfate 200 mg PO DAILY 03/16/17 Levothyroxine Sodium [Synthroid] 50 mcg PO DAILY 03/16/17 Omeprazole 20 mg PO DAILY 03/16/17 Amoxicillin/Potassium Clav 1 each PO BID #14 tablet 03/20/17 [Augmentin 875-125 Tablet] Ipratropium/Albuterol Sulfate 3 ml NEB Q6 ampul.neb 03/20/17 [Duoneb] Ipratropium/Albuterol Sulfate 3 ml IH Q4 PRN #60 ampul.neb 03/21/17 [Duoneb] - SOCIAL HX Smoking History: less than 1 pack/day Alcohol Use: none Drug Use: none - FAMILY HX Family History: No - VITAL SIGNS Vital Signs: Vital Signs Temp Pulse Resp BP Pulse Ox 98.7 F 74 12 128/80 99 02/14/19 19:02 02/14/19 19:02 02/14/19 19:02 02/14/19 19:02 02/14/19 19:02 - REVIEWED ASSESSMENTS Nursing Assessment Reviewed: Yes Vitals Reviewed: Yes Procedures Wound Location: head Wound Length: 3 cm Wound's Depth, Shape: linear Wound Explored: clean Irrigated w/ Saline (ccs): 100 Betadine Prep?: No (chlorhexidine) Wound Repaired With: nicolas (5 nicolas) Progress: Patient tolerated well ED Results Lab/Radiology - Orders Orders: ED Orders Category Date Time Status Cleanse with NS and Chlorhexid 1T Care 02/14/19 19:07 Active Miles 1T Care 02/14/19 19:07 Active Triple Antibiotic Ointment 1T Care 02/14/19 19:07 Active Diph,Pertuss(Acell),Tet Vac/Pf [Adacel] Med 02/14/19 19:07 Discontinued 0.5 ml IM .ONCE ONE General Adult Physical Exam - PHYSICAL EXAM GENERAL APPEARANCE: no distress EENT: eye inspection normal, ENT inspection normal, pharynx normal, [place] NECK: normal inspection, supple RESPIRATORY: chest non-tender CVS: heart sounds normal, equal pulses BACK: normal inspection SKIN: warm/dry, normal color, other (3 cm lac to the scalp) EXTREMITIES: non-tender, normal range of motion, no evidence of injury NEURO: oriented X3, CN's nml as tested, motor nml, sensation nml, mood/affect nml, cognition normal Discharge Clincal Impression: Laceration of head, Stapled skin wound Referrals: Lorene Sauceda MD [Primary Care Provider] - 2 Days Additional Instructions: Keep area clean and dry (you may wash your hair) Apply antibiotic ointment 4 times a day Watch for signs of infection; redness, erythema, drainage, fevers Follow up with PCP in 7-10 days to have nicolas removed Condition: Good Disposition: 01 HOME, SELF-CARE Decision to Admit: NO Decision Time: 19:40
[2019-02-14 20:28] VITALS: BP 120/56
== END 2019-02-14 19:15 | disposition home or self-care (01) ==
LOC: ED 18:33
DX: S01.91XA Laceration without foreign body of unspecified part of head, initial encounter (principal); W11.XXXA Fall on and from ladder, initial encounter; W22.8XXA Striking against or struck by other objects, initial encounter
CPT/HCPCS: 12013; 90715; 99282; 99284